=== PATIENT | female | born 1955 | race Caucasian/White ===

== ENCOUNTER → 2017-12-09 | Outpatient (CLI) | payer OTHER ==
--- NOTE | 2017-12-09 15:47 | CPEKG ---
Heart Rate: 105 RR Interval: 571 P-R Interval: 156 QRSD Interval: 88 QT Interval: 368 QTC Interval: 487 P Varnell: 51 QRS Varnell: 13 T Wave Varnell: 47 EKG Severity - ABNORMAL ECG - EKG Impression: SINUS TACHYCARDIA EKG Impression: PROBABLE INFERIOR INFARCT, OLD Electronically Signed By: Ana Antoine 09-Dec-2017 20:15:10
== END ==
LOC: FPAT 14:58
PROVIDERS: ATTEND Neurological Surgery
DX: Z01.810 Encounter for preprocedural cardiovascular examination (principal); Z01.812 Encounter for preprocedural laboratory examination

== ENCOUNTER 2017-12-22 | Inpatient (IN) | payer OTHER | END 2017-12-27 19:36 | disposition home health service (06) | DRG 25 | PROVIDERS: ADMIT Neurological Surgery | PROC: 00NK0ZZ Release Trigeminal Nerve, Open Approach (ICD-10-PCS; principal; 2017-12-22) | DX: G50.0 Trigeminal neuralgia (principal); I10 Essential (primary) hypertension; E11.9 Type 2 diabetes mellitus without complications; J96.20 Acute and chronic respiratory failure, unspecified whether with hypoxia or hypercapnia; E05.90 Thyrotoxicosis, unspecified without thyrotoxic crisis or storm; E66.2 Morbid (severe) obesity with alveolar hypoventilation; F17.210 Nicotine dependence, cigarettes, uncomplicated; Z68.41 Body mass index [BMI] 40.0-44.9, adult | CPT/HCPCS: 84481-90; 92523-GN; 97116-GP; 97161-GP; 97166-GO; 97535-GO; C1713; J0171; J0360; J0690; J1580; J1644; J1815; J1885; J2060; J2250; J2270; J2405; J2550; J2704; J2765; J3010; J3360; Q9967 ==